=== PATIENT | male | born 1990 | race Two or more races ===

== ENCOUNTER 2018-09-05 17:32 | Emergency (ER) | payer MEDICAID ==
[~2018-09-05] VITALS: Ht 172.7 cm; Wt 90.7 kg
[2018-09-05] MEDS ORDERED: CELEXA20 MG ORAL (17:38)
[2018-09-05] MEDS ORDERED: CITALOPRAM HBR20 M1 ORAL (17:38)
[2018-09-05] MEDS ORDERED: RISPERDAL2 MG ORAL (17:38)
[2018-09-05] MEDS ORDERED: ARIPIPRAZOLE5 MG PO (17:38)
--- NOTE | 2018-09-05 17:38 | NUR ---
ED Nurse Note: PT BROUGHT IN TO ER BY THEODORA AND MAIK FROM [facility]. PT IS BEING PLACED ON A HOLD BY MAIK. PT ADMITS TO SI. PT STATES, "THEY'RE GONNA GET ME AND I'M GONNA TAKE MY LIFE BEFORE THEY DO." WHEN ASKED WHO, PT STATES, "THE GUYS FROM [facility]." AUDITORY AND VISUAL HALLUCINATIONS PRESENT. PT KEEPS SAYING HE HEARS AND SEES HIS [facility] MATES THAT ARE AFTER HIM. ROOM CLEARED FROM ALL ITEMS AND WIRES. SITTER AT BEDSIDE.
--- NOTE | 2018-09-05 17:38 | NUR ---
Note undone in EDM - 09/05/18 at 1846 by [facility] ED Nurse Note: PT BROUGHT IN TO ER BY THEODORA AND MAIK FROM [facility]. PT IS BEING PLACED ON A HOLD BY THEODORA. PT ADMITS TO SI. PT STATES, "THEY'RE GONNA GET ME AND I'M GONNA TAKE MY LIFE BEFORE THEY DO." WHEN ASKED WHO, PT STATES, "THE GUYS FROM [facility]." AUDITORY AND VISUAL HALLUCINATIONS PRESENT. PT KEEPS SAYING HE HEARS AND SEES HIS [facility] MATES THAT ARE AFTER HIM. ROOM CLEARED FROM ALL ITEMS AND WIRES. SITTER AT BEDSIDE.
[2018-09-05 17:41] VITALS: BP 142/76
[2018-09-05 18:02] LABS: APPEARANCE,URINE CLEAR; BILIRUBIN, URINE NEGATIVE (NEGATIVE); COLOR,URINE PALE YELLOW; GLUCOSE, URINE (UA) NEGATIVE (NEGATIVE); KETONES,URINE 3+ (NEGATIVE); LEUKOCYTE ESTERASE ,URINE NEGATIVE (NEGATIVE); NITRITE,URINE NEGATIVE (NEGATIVE); PH,URINE 7 (4.5-8.0); PROTEIN,URINE NEGATIVE (NEGATIVE); UROBILINOGEN,URINE NORMAL MG/DL (0.0-1.0)
[2018-09-05 18:04] LABS: BASOPHILS % (AUTO) 0.8 % (0.0-2.0); EOSINOPHILS % (AUTO) 0.4 % (0.0-3.0); HEMATOCRIT 44.8 % (42.0-52.0); HEMOGLOBIN 15.4 G/DL (14.2-18.0); LYMPHOCYTES % (AUTO) 29.6 % (20.0-45.0); MEAN CORPUSCULAR VOLUME 90 FL (80-99); MONOCYTES % (AUTO) 6.5 % (1.0-10.0); NEUTROPHILS % (AUTO) 62.6 % (45.0-75.0); PLATELET COUNT 251 K/UL (150-450); RED BLOOD COUNT 4.98 M/UL (4.70-6.10); RED CELL DISTRIBUTION WIDTH 11.1 % (11.6-14.8); WHITE BLOOD COUNT 8.4 K/UL (4.8-10.8)
[2018-09-05 18:07] LABS: ANION GAP 11 mmol/L (5-15); BLOOD UREA NITROGEN 9 mg/dL (7-18); CALCIUM 9.3 MG/DL (8.5-10.1); CARBON DIOXIDE 27 MMOL/L (21-32); CHLORIDE 100 MMOL/L (98-107); POTASSIUM 3.6 MMOL/L (3.5-5.1); SODIUM 138 MMOL/L (136-145)
[2018-09-05 18:11] LABS: ALANINE AMINOTRANSFERASE 47 U/L (12-78); ALBUMIN 4.6 G/DL (3.4-5.0); ALBUMIN/GLOBULIN RATIO 1.2 (1.0-2.7); ALKALINE PHOSPHATASE 93 U/L (46-116); ASPARTATE AMINO TRANSFERASE 42 U/L (15-37); BILIRUBIN,TOTAL 0.6 MG/DL (0.2-1.0)
[2018-09-05] MEDS ORDERED: DiphenhydrAMINE 50mg/ml Inj ONE (18:14)
[2018-09-05] MEDS ORDERED: DiphenhydrAMINE 50mg/ml Inj IVP ONE (18:15)
--- NOTE | 2018-09-05 18:15 | NUR ---
ED Nurse Note: PT PLACED ON [employer]NAGER. VSS.
[2018-09-05] MEDS ORDERED: Haloperidol 5mg/ml Inj IM ONE (18:30)
[2018-09-05 18:42] VITALS: BP 116/85
--- NOTE | 2018-09-05 19:08 | NUR ---
HAND-OFF: REPORT GIVEN TO RENALDO ISIDRO.
--- NOTE | 2018-09-05 19:15 | NUR ---
ED Nurse Note: Received Report and Pt from day shift. Knowing Pt is SI and sitter is on bedside. Pt will admit Psy unit, await for the report.
--- NOTE | 2018-09-05 19:23 | Emergency Room Report ---
History of Present Illness General Chief Complaint: Behavioral Complaint Source: EMS (Eleazar Yeung DO) Present Illness HPI Patient presents by paramedics and police department on 5150 hold patient had reported auditory hallucinations with reports of voices telling him to kill himself Patient denies any headache denies any chest pain He reports that he feels ' paranoid' Denies any focal weakness patient appears agitated and anxious he also reports that he wants Seroquel Denies any focal weakness denies any recent trauma (Eleazar Yeung DO) Allergies: Coded Allergies: No Known Allergies (Unverified , 09/05/18) Patient History Past Medical History: see triage record Pertinent Family History: none Reviewed Nursing Documentation: PMH: Agreed; PSxH: Agreed (Eleazar Yeung DO) Review of Systems All Other Systems: negative except mentioned in HPI (Eleazar Yeung DO) Physical Exam Vital Signs Date Time Temp Pulse Resp B/P (MAP) Pulse Ox O2 Delivery O2 Flow Rate FiO2 09/05/18 17:15 97.9 88 20 148/80 (102) 98 Room Air Sp02 EP Interpretation: reviewed, normal General Appearance: well appearing, no apparent distress Head: normocephalic, atraumatic Eyes: left eye other - Pull reacts appropriately ENT: hearing grossly normal, normal pharynx, TMs + canals normal, uvula midline Neck: full range of motion, supple, no meningismus, no bony tend Respiratory: lungs clear, normal breath sounds, no rhonchi, no respiratory distress, no retraction, no accessory muscle use Cardiovascular #1: normal peripheral pulses, regular rate, rhythm, no edema, no gallop, no JVD, no murmur Gastrointestinal: normal bowel sounds, non tender, soft, no mass, no organomegaly, non-distended, no guarding, no hernia, no pulsatile mass, no rebound Genitourinary: no CVA tenderness Musculoskeletal: normal inspection Neurologic: oriented x3, responsive, dry cleaner III-XII nml as tested, motor strength/ tone normal, sensory intact Psychiatric: anxious - Reports auditory hallucination and voices telling him to hurt himself Skin: other - Multiple tattoos Lymphatic: normal inspection, no adenopathy (Eleazar Yeung DO) Medical Decision Making Diagnostic Impression: Primary Impression: Behavioral change Additional Impression: Schizophrenia ER Course Given the patient's history and presentation extensive blood work is initiated patient requiring chemical sedation and requesting medication to help him feel more calm Patient's drug screen is negative for screened products Patient has remained calm after initial intervention Given his 5150 status psychiatric facilities are contacted and patient transferred for continued care as inpatient Labs Test 09/05/18 17:45 White Blood Count 8.4 K/UL (4.8-10.8) Red Blood Count 4.98 M/UL (4.70-6.10) Hemoglobin 15.4 G/DL (14.2-18.0) Hematocrit 44.8 % (42.0-52.0) Mean Corpuscular Volume 90 FL (80-99) Mean Corpuscular Hemoglobin 30.9 PG (27.0-31.0) Mean Corpuscular Hemoglobin Concent 34.4 G/DL (32.0-36.0) Red Cell Distribution Width 11.1 % (11.6-14.8) Platelet Count 251 K/UL (150-450) Mean Platelet Volume 7.3 FL (6.5-10.1) Neutrophils (%) (Auto) 62.6 % (45.0-75.0) Lymphocytes (%) (Auto) 29.6 % (20.0-45.0) Monocytes (%) (Auto) 6.5 % (1.0-10.0) Eosinophils (%) (Auto) 0.4 % (0.0-3.0) Basophils (%) (Auto) 0.8 % (0.0-2.0) Urine Color Pale yellow Urine Appearance Clear Urine pH 7 (4.5-8.0) Urine Specific Cross 1.010 (1.005-1.035) Urine Protein Negative (NEGATIVE) Urine Glucose (UA) Negative (NEGATIVE) Urine Ketones 3+ (NEGATIVE) Urine Blood Negative (NEGATIVE) Urine Nitrite Negative (NEGATIVE) Urine Bilirubin Negative (NEGATIVE) Urine Urobilinogen Normal MG/DL (0.0-1.0) Urine Leukocyte Esterase Negative (NEGATIVE) Sodium Level 138 MMOL/L (136-145) Potassium Level 3.6 MMOL/L (3.5-5.1) Chloride Level 100 MMOL/L (98-107) Carbon Dioxide Level 27 MMOL/L (21-32) Anion Gap 11 mmol/L (5-15) Blood Urea Nitrogen 9 mg/dL (7-18) Creatinine 1.0 MG/DL (0.55-1.30) Estimat Glomerular Filtration Rate > 60 mL/min (>60) Glucose Level 101 MG/DL (74-106) Calcium Level 9.3 MG/DL (8.5-10.1) Total Bilirubin 0.6 MG/DL (0.2-1.0) Aspartate Amino Transf (AST/SGOT) 42 U/L (15-37) Alanine Aminotransferase (ALT/SGPT) 47 U/L (12-78) Alkaline Phosphatase 93 U/L (46-116) Total Protein 8.4 G/DL (6.4-8.2) Albumin 4.6 G/DL (3.4-5.0) Globulin 3.8 g/dL Albumin/Globulin Ratio 1.2 (1.0-2.7) Salicylates Level 0.7 ug/mL (2.8-20) Urine Opiates Screen Negative (NEGATIVE) Acetaminophen Level < 2 MCG/ML (10-30) Urine Barbiturates Screen Negative (NEGATIVE) Phencyclidine (PCP) Screen Negative (NEGATIVE) Urine Amphetamines Screen Negative (NEGATIVE) Urine Benzodiazepines Screen Negative (NEGATIVE) Urine Cocaine Screen Negative (NEGATIVE) Urine Marijuana (THC) Screen Negative (NEGATIVE) Serum Alcohol < 3 mg/dL (Eleazar Yeung DO) ER Course Patient was medically cleared for psychiatric placement (Lokesh Henderson MD) Last Vital Signs Date Time Temp Pulse Resp B/P (MAP) Pulse Ox O2 Delivery O2 Flow Rate FiO2 09/05/18 18:42 98.1 89 20 116/85 98 Room Air Status: improved (Eleazar Yeung DO) Status: improved (Lokesh Henderson MD) Disposition: XFER TO PSYCH HOSP/UNIT Condition: Improved Referrals: [facility],REFERRING (PCP) Eleazar Yeung DO Sep 05, 2018 19:23 Lokesh Henderson MD Sep 05, 2018 22:08
[2018-09-05 22:00] VITALS: BP 108/70
--- NOTE | 2018-09-05 22:19 | NUR ---
ED Nurse Note: Phone report given to [facility] RN Audrey, will await for the bed.
--- NOTE | 2018-09-05 23:00 | NUR ---
ED Nurse Note: Phone with certified wellness program manager RENALDO Ventura from [place] [facility]: Pt will admit for Psy [facility]oi. Address [address], [facility], [place] [address]
[2018-09-06] VITALS: BP 113/80
[2018-09-06 02:06] VITALS: BP 116/82
[2018-09-06 02:30] VITALS: BP 116/82
--- NOTE | 2018-09-06 02:41 | NUR ---
ED Nurse Note: EMT arrived and pick up operator Pt. Pt is AO x 4 times, VSS, on room air no distress. Report given to EMT Fantasma, Pt belongings given to EMT team. Pt will be in [facility] about 40 minutes later.
== END 2018-09-06 02:30 ==
LOC: EDBD 17:32 → EMR 19:02
DX: F20.9 Schizophrenia, unspecified (principal); F68.8 Other specified disorders of adult personality and behavior
CPT/HCPCS: 36415; 80053; 80307; 80329; 81003; 85025; 96372; 96374; 96375; 99284; J1200; J1630; J2250